=== PATIENT | female | born 1970 | race Two or more races ===

== ENCOUNTER 2023-12-04 12:15 | Inpatient (IN) | payer OTHER ==
[~2023-12-04 12:15] MED LIST: IBU600 MG PO; METFORMIN HCL850 M1 PO; NORVASC5 MG PO; TOPROL XL50 M1 PO; ZESTRIL10 M1 PO
[2023-12-09] MEDS ORDERED: CEFAZOLIN SODIUM 1,000 MG VIAL ONE (07:37)
[2023-12-09] MEDS ORDERED: POVIDONE-IODINE 118 ML BOTT TOP ONE (09:08)
[2023-12-09] MEDS ORDERED: SUGAMMADEX SODIUM 200 MG/2 ML VIAL IV ONE (12:45)
[2023-12-09] MEDS ORDERED: ONDANSETRON HCL 2 MG/ML VIAL IV PRN (13:15)
[2023-12-09] MEDS ORDERED: DEXTROSE 50 % IN WATER 0.5 G/ML DISP.SYRIN IV PRN ×2 (13:15→13:30)
[2023-12-09] MEDS ORDERED: RINGERS SOLUTION,LACTATED 1,000 ML IV SCH (13:15)
[2023-12-09] MEDS ORDERED: MORPHINE SULFATE 4 MG/ML VIAL IV PRN (13:15)
[2023-12-09] MEDS ORDERED: INSULIN LISPRO 1,000 UNIT/10 ML UNITS SUBCUTANEO PRN ×2 (13:15)
[2023-12-09] MEDS ORDERED: MORPHINE SULFATE 4 MG,MORPHINE SULFATE 2 MG IV PRN (14:00)
[2023-12-09 17:01] LABS: HEMATOCRIT 38.7 % (36.0-45.00); MEAN CORPUSCULAR HEMOGLOBIN 28.6 pg (27.00-32.0); MEAN CORPUSCULAR HGB CONC 33.7 g/dl (32.0-36.0); PLATELET COUNT 296 K/uL (150-450); RED BLOOD COUNT 4.55 M/uL (4.00-6.00); RED CELL DISTRIBUTION WIDTH 14.6 % (11.5-14.5)
[2023-12-09] MEDS ORDERED: CEFAZOLIN SODIUM 1,000 MG VIAL IV SCH (18:00)
[2023-12-10] MEDS ORDERED: AMLODIPINE BESYLATE 5 MG TABLET PO SCH (09:00)
[2023-12-10] MEDS ORDERED: METOPROLOL TARTRATE 50 MG TABLET PO SCH (09:00)
[2023-12-10] MEDS ORDERED: LISINOPRIL 40 MG TABLET PO SCH (09:00)
[2023-12-10] MEDS ORDERED: KETOROLAC TROMETHAMINE 60 MG VIAL IM STA (09:28)
== END 2023-12-10 11:23 | disposition home or self-care (01) | DRG 741 ==
LOC: O/R 12-09 06:52 → OB/GYN 12-09 06:52
PROVIDERS: ADMIT Obstetrics & Gynecology Gynecology; ATTEND Obstetrics & Gynecology Gynecology
PROC: 0UT74ZZ Resection of Bilateral Fallopian Tubes, Percutaneous Endoscopic Approach (ICD-10-PCS; 2023-12-09)
PROC: 0UT24ZZ Resection of Bilateral Ovaries, Percutaneous Endoscopic Approach (ICD-10-PCS; 2023-12-09)
PROC: 0UT94ZZ Resection of Uterus, Percutaneous Endoscopic Approach (ICD-10-PCS; principal; 2023-12-09 07:00)
DX: C54.1 Malignant neoplasm of endometrium (principal); Z20.822 Contact with and (suspected) exposure to COVID-19

== ENCOUNTER 2024-03-12 06:21 | Day surgery (SDC) | payer OTHER ==
[2024-03-06 11:14] VITALS: BP 150/91
[~2024-03-12] VITALS: Ht 157.5 cm; Wt 122.5 kg
[~2024-03-12 06:21] MED LIST changes: +AMLODIPINE-OLM1 EACH PO; +METFORMIN HCL850 MG; +ROSUVASTATIN CA20 MG PO; +SYNTHROID50 MCG PO; +ZESTRIL40 M1 PO
[2024-03-12] MEDS ORDERED: KETOROLAC TROMETHAMINE 30 MG VIAL IV STA (13:24)
[2024-03-12] MEDS ORDERED: TRAMADOL HCL50 MG PO (14:42)
[2024-03-12] MEDS ORDERED: NEURONTIN300 MG PO (14:42)
[2024-03-12] MEDS ORDERED: CEPHALEXIN500 MG PO (14:42)
[2024-03-12] MEDS ORDERED: TYLENOL ARTHRI650 MG PO (14:42)
[2024-03-12] MEDS ORDERED: MIRALAX17 GM PO (14:42)
[2024-03-12] MEDS ORDERED: CEFAZOLIN SODIUM 2,000 MG in 0.9 % SODIUM CHLORIDE 100 ML IV ONE (15:30)
[2024-03-12] MEDS ORDERED: METRONIDAZOLE/SODIUM CHLORIDE 100 ML IV ONE (15:30)
[2024-03-13] MEDS ORDERED: ENALAPRILAT DIHYDRATE 1.25 MG/ML VIAL IV ONE (11:30)
[2024-03-13] MEDS ORDERED: SUGAMMADEX SODIUM 200 MG/2 ML VIAL IV ONE (11:30)
[2024-03-13] MEDS ORDERED: HEMOSTATIC MATRIX 1 KIT KIT TOP ONE (11:30)
[2024-03-13] MEDS ORDERED: SURGIFLO APPLICATOR 1 EACH APPL TOP ONE (11:30)
== END 2024-03-12 17:20 | disposition home or self-care (01) ==
LOC: CIR.AMB 06:21
PROVIDERS: ATTEND Obstetrics & Gynecology Gynecologic Oncology
DX: C54.1 Malignant neoplasm of endometrium (principal); K42.0 Umbilical hernia with obstruction, without gangrene